=== PATIENT | female | born 1935 | race Caucasian/White ===

== ENCOUNTER → 2018-03-06 | Outpatient (CLI) | payer MEDICARE ==
--- NOTE | 2018-03-07 13:25 | MM ---
Reason for exam: screening (asymptomatic). Last mammogram was performed 1 year and 1 month ago. History: Patient is postmenopausal and has history of endometrial cancer at age 78. Family history of premenopausal breast cancer in sister at age 40. Benign excisional biopsy of the left breast, July 24, 2002. Physical Findings: A clinical breast exam by your physician is recommended on an annual basis and results should be correlated with mammographic findings. MG Screening Mammo w CAD Bilateral CC and MLO view(s) were taken. Prior study comparison: January 19, 2017, bilateral MG screening mammo w CAD. January 11, 2016, bilateral MG screening mammo w CAD. The breast tissue is extremely dense which could obscure a lesion on mammography. No significant changes when compared with prior studies. ASSESSMENT: Benign, BI-RAD 2 RECOMMENDATION: Routine screening mammogram of both breasts in 1 year.
== END | disposition home or self-care (01) ==
LOC: RADMAMWWP 14:29
PROVIDERS: ATTEND Obstetrics & Gynecology
DX: Z12.31 Encounter for screening mammogram for malignant neoplasm of breast (principal); Z80.3 Family history of malignant neoplasm of breast
CPT/HCPCS: 77067

== ENCOUNTER → 2019-03-28 | Outpatient (CLI) | payer MEDICARE ==
--- NOTE | 2019-03-28 11:33 | MM ---
Reason for exam: screening (asymptomatic). Last mammogram was performed 1 year and 1 month ago. History: Patient is postmenopausal and has history of endometrial cancer at age 78. Family history of premenopausal breast cancer in sister at age 40. Benign excisional biopsy of the left breast, July 24, 2002. Physical Findings: A clinical breast exam by your physician is recommended on an annual basis and results should be correlated with mammographic findings. MG Screening Mammo w CAD Bilateral CC and MLO view(s) were taken. Prior study comparison: March 06, 2018, bilateral MG screening mammo w CAD. January 19, 2017, bilateral MG screening mammo w CAD. The breast tissue is heterogeneously dense. This may lower the sensitivity of mammography. There are benign appearing round vascular calcifications bilaterally. There is chronic nodularity in the left breast. There is no discrete abnormality. ASSESSMENT: Benign, BI-RAD 2 RECOMMENDATION: Routine screening mammogram of both breasts in 1 year.
== END | disposition home or self-care (01) ==
LOC: RADMAMWWP 09:20
PROVIDERS: ATTEND Obstetrics & Gynecology
DX: Z12.31 Encounter for screening mammogram for malignant neoplasm of breast (principal); Z80.3 Family history of malignant neoplasm of breast
CPT/HCPCS: 77067

== ENCOUNTER → 2020-01-23 | Outpatient (CLI) | payer MEDICARE ==
--- NOTE | 2020-01-23 12:20 | FL ---
EXAMINATION TYPE: FL barium swallow DATE OF EXAM: 01/23/2020 COMPARISON: None HISTORY: Dysphasia lung field TECHNIQUE: Double air-contrast technique is utilized. Fluoroscopy and overhead radiographs were obtained. The esophagus dilates to normal caliber has normal contour to the gastroesophageal junction. Gastroes ophageal junction opens to normal caliber. Multiple tertiary contractions were evident during this ex amination compatible with presbyesophagus. There is incomplete stripping the esophageal bolus the hor izontal drinking position. IMPRESSIONS: 1. Presbyesophagus.
== END | disposition home or self-care (01) ==
LOC: RADUSWWP 10:39
PROVIDERS: ATTEND Otolaryngology
DX: K22.8 Other specified diseases of esophagus (principal)
CPT/HCPCS: 74220

== ENCOUNTER → 2020-05-27 | Outpatient (CLI) | payer MEDICARE ==
--- NOTE | 2020-05-28 14:54 | MM ---
Reason for exam: screening (asymptomatic). Last mammogram was performed 1 year and 2 months ago. History: Patient is postmenopausal and has history of endometrial cancer at age 78. Family history of premenopausal breast cancer in sister at age 40. Benign excisional biopsy of the left breast, July 24, 2002. Physical Findings: A clinical breast exam by your physician is recommended on an annual basis and results should be correlated with mammographic findings. MG Screening Mammo w CAD Bilateral CC and MLO view(s) were taken. Prior study comparison: March 28, 2019, bilateral MG screening mammo w CAD. March 06, 2018, bilateral MG screening mammo w CAD. The breast tissue is heterogeneously dense. This may lower the sensitivity of mammography. There are benign appearing round, vascular calcifications bilaterally. There is no discrete abnormality. ASSESSMENT: Benign, BI-RAD 2 RECOMMENDATION: Routine screening mammogram of both breasts in 1 year.
== END | disposition home or self-care (01) ==
LOC: RADMAMWWP 13:01
PROVIDERS: ATTEND Obstetrics & Gynecology
DX: Z12.31 Encounter for screening mammogram for malignant neoplasm of breast (principal); Z80.3 Family history of malignant neoplasm of breast
CPT/HCPCS: 77067

== ENCOUNTER → 2022-05-10 | Outpatient (CLI) | payer MEDICARE ==
--- NOTE | 2022-05-10 14:59 | BD ---
EXAMINATION TYPE: Axial Bone Density DATE OF EXAM: 05/10/2022 COMPARISON: NONE CLINICAL HISTORY: 86 year old Female. ICD-10 CODE: M81.0 AGE RELATED OSTEOPOROSIS W/O CURRENT Height: 60 Weight: 132.1 FRAX RISK QUESTIONS: Alcohol (3 or more units per day): no Family History (Parent hip fracture): no Glucocorticoids (More than 3mos): no (Ex: prednisone, prednisolone, methylprednisolone, dexamethasone, and hydrocortisone). History of Fracture in Adulthood: no Secondary Osteoporosis: 1. Type 1 Diabetes: no 2. Hyperthyroidism: no 3. Menopause before 45: no 4. Malnutrition: no 5. Chronic liver disease: no Rheumatoid Arthritis: no Current Tobacco Use: no RISK FACTORS HISTORY OF: Surgery to Spine/Hip(right/left)/Wrist (right/left): no Family History of Osteoporosis: no Active: yes Diet low in dairy products/other sources of calcium: no Postmenopausal woman: yes Lost more than 2 inches in height since high school: yes MEDICATIONS: Osteoporosis Medications: Evista How Long: long time Additional Medications: Additional History: EXAM MEASUREMENTS: Bone mineral densitometry was performed using the [employer] System. Bone mineral density as measured about the Lumbar spine is: ----- L1-L4(G/cm2): 1.224 T Score Values are as follows: ----- L1: 0.6 ----- L2: 1.2 ----- L3: 0.4 ----- L4: -0.5 ----- L1-L4: 0.4 Bone mineral density has: increased 8.4 % since study of: 01.02.2014 Bone mineral density about the R hip (g/cm2): 0.880 Bone mineral density about the L hip (g/cm2): 0.851 T Score values are as follows: -----R Neck: -1.1 -----L Neck: -1.3 -----R Total: -0.7 -----L Total: -0.7 Bone mineral density has: decreased -0.1% since study of: 01.02.2014 FRAX%s: The graph provided illustrates a 13.0% chance for a major osteoporotic fx and a 3.3% chance f or the hips probability for fx in 10 years time. IMPRESSION: Osteopenia (T Score between -2.5 and -1). There is slightly increased risk of fracture and the patient may be considered for treatment. Re-Screen 2-5 years. NOTE: T-SCORE=SD OF THE YOUNG ADULT MEAN.
== END | disposition home or self-care (01) ==
LOC: RADBDWWP 13:51
PROVIDERS: ATTEND Internal Medicine Geriatric Medicine
DX: M85.89 Other specified disorders of bone density and structure, multiple sites (principal); M81.0 Age-related osteoporosis without current pathological fracture; Z78.0 Asymptomatic menopausal state
CPT/HCPCS: 77080

== ENCOUNTER 2022-11-13 09:52 | Inpatient (IN) | payer MEDICARE ==
--- NOTE | 2022-11-13 10:44 | ED ---
Weakness HPI - General Chief complaint: Weakness Stated complaint: poss UTI,Fall Time Seen by Provider: 11/13/22 10:15 Source: patient, family, RN notes reviewed Mode of arrival: ambulatory Limitations: no limitations - History of Present Illness Initial comments: This is an 86-year-old female who presents to the emergency department for weakness. Patient states that she went to a walk-in clinic several days ago for urinary urgency and was diagnosed with UTI. She has since been on Macrobid, and has 2 days left. However, she has continued to feel very weak. Her son, who is at bedside, states that she is also been exhibiting strange behavior. Last night, the patient ended up on her floor, and is unsure how she got there. She ended up spending the night on the floor all night and urinated on herself, before her family came to check on her today and found her on the floor. Denies sustaining any injuries. Believes that she was too weak to get herself up. She has not had any fevers, nausea, or vomiting. Denies any history of UTIs prior to this. She does feel like she continues to have an increase in urinary frequency. Denies any back pain or abdominal pain. Denies any fevers, chills, sore throat, cough, dyspnea, chest pain, palpitations, abdominal pain, nausea, vomiting, diarrhea, back pain, or headaches. MD Complaint: generalized weakness - Related Data Home Medications Medication Instructions Recorded Confirmed Atenolol [Tenormin] 25 mg PO HS 11/19/13 11/13/22 Enalapril [Vasotec] 5 mg PO HS 11/19/13 11/13/22 Simvastatin [Zocor] 10 mg PO Q48H 11/13/22 11/13/22 Allergies Allergy/AdvReac Type Severity Reaction Status Date / Time cefuroxime axetil AdvReac Rash/Hives Verified 11/13/22 11:34 [From Ceftin] cephalexin monohydrate AdvReac Rash/Hives Verified 11/13/22 11:34 [From Keflex] Penicillins AdvReac Diarrhea Verified 11/13/22 11:34 zolpidem tartrate AdvReac Rash/Hives Verified 11/13/22 11:34 [From Ambien] Review of Systems ROS Statement: Those systems with pertinent positive or pertinent negative responses have been documented in the HPI. ROS Other: All systems not noted in ROS Statement are negative. Past Medical History Past Medical History: Hyperlipidemia, Hypertension Additional Past Medical History / Comment(s): heart murmer, arrythmia History of Any Multi-Drug Resistant Organisms: None Reported Past Surgical History: Breast Surgery, Cholecystectomy, Heart Catheterization Additional Past Surgical History / Comment(s): breast biopsy Past Anesthesia/Blood Transfusion Reactions: No Reported Reaction Past Psychological History: No Psychological Hx Reported Smoking Status: Never smoker Past Alcohol Use History: None Reported Past Drug Use History: None Reported - Past Family History Mother Family Medical History: Cancer Sister(s) Family Medical History: Cancer General Exam Limitations: no limitations General appearance: alert, in no apparent distress Head exam: Present: atraumatic, normocephalic, normal inspection Respiratory exam: Present: normal lung sounds bilaterally. Absent: respiratory distress, wheezes, rales, rhonchi, stridor Cardiovascular Exam: Present: normal rhythm, tachycardia, normal heart sounds. Absent: systolic murmur, diastolic murmur, rubs, gallop, clicks GI/Abdominal exam: Present: soft, normal bowel sounds. Absent: distended, ten derness, guarding, rebound, rigid Back exam: Absent: CVA tenderness (R), CVA tenderness (L) Neurological exam: Present: alert, oriented X3, CN II-XII intact Psychiatric exam: Present: normal affect, normal mood Skin exam: Present: warm, dry, intact, normal color. Absent: rash Course Vital Signs 11/13/22 11/13/22 11/13/22 10:08 10:34 14:30 Temperature 98.9 F Pulse Rate 118 H 104 H 100 Respiratory 18 20 18 Rate Blood Pressure 122/75 113/55 O2 Sat by Pulse 95 95 Oximetry Medical Decision Making - Medical Decision Making This is an 86-year-old female who presents to the emergency department for generalized weakness. Was pt. sent in by a medical professional or institution? @ -No Did you speak to anyone other than the patient for history? @ -Her son provided the majority of the information, aside from the patient's saying that she has no history of UTIs and has currently been experiencing urinary frequency and urgency. Did you review nursing and triage notes? @ -Yes, and I agree, it is accurate with regards to the patient's symptoms. Were old charts reviewed? @ -No Differential Diagnosis? @ -Differential Weakness: Hypoglycemia, shock, sepsis, hyponatremia, anemia, infection, ID, ETOH, adverse medicine reaction, overdose, stroke, this is not meant to be an all-inclusive list. EKG interpreted by me (3pts min.)? @ -EKG interpreted by me demonstrating the following: Sinus tachycardia. Ventricular rate 107 beats per minute, IL interval 151 ms, QRS duration 135 ms, QTC 448 ms. X-rays interpreted by me (1pt min.)? @ -Chest x-ray obtained. My interpretation identifies subsegmental changes at the left lung base. CT interpreted by me (1pt min.)? @ -Not obtained U/S interpreted by me (1pt. min.)? @ -Not obtained What testing was considered but not performed? (CT, X-rays, U/S, labs)? Why? @ -None What meds were considered but not given? Why? @ -None Did you discuss the management of the patient with other professionals? @ -No Did you reconcile home meds? @ -No Was smoking cessation discussed for >3mins.? @ -No Was critical care preformed (if so, how long)? @ -No Were there social determinants of health that impacted care today? How? (Homelessness, low income, unemployed, alcoholism, drug addiction, transportation, low edu. Level, literacy, decrease access to med. care, longterm, rehab)? @ -No Was there de-escalation of care discussed even if they declined? (Discuss DNR or withdrawal of care, Hospice)? @ -No What co-morbidities impacted this encounter? (DM, HTN, Smoking, COPD, CAD, Cancer, CVA, Hep., AIDS, mental health diagnosis, sleep apnea, morbid obesity)? @ -HLD, HTN Was patient admitted / discharged? @ -Admitted. Lab work obtained revealing leukocytosis and elevated CK suggestive of rhabdomyolysis with a value of 2115. Urinalysis has blood and no significant signs of infection. Chest x-ray reveals subsegmental changes at the left lung base suggestive of atelectasis or pneumonia. Patient has no difficu lty breathing or upper respiratory symptoms. However, she does have an elevated white count and remained tachycardic while in the emergency department. We thus started her on antibiotics for possible pneumonia. She was started on levofloxacin due to her allergy to cephalosporins and penicillins. She was given a 2 L bolus of IV fluids for the rhabdomyolysis and was started on maintenance IV fluids at 130 mL/hr. Undiagnosed new problem with uncertain prognosis? @ -None Drug Therapy requiring intensive monitoring for toxicity (Heparin, Nitro, Insulin, Cardizem)? @ -None Were any procedures done? @ -None Diagnosis/symptom? @ -Rhabdomyolysis, pneumonia, weakness Acute, or Chronic, or Acute on Chronic? @ -Acute Uncomplicated (without systemic symptoms) or Complicated (systemic symptoms)? @ -Complicated Side effects of treatment? @ -None Exacerbation, Progression, or Severe Exacerbation] @ -Not applicable Poses a threat to life or bodily function? @ -Yes This case was discussed in detail with the attending ED physician, Dr. Jarvis. Presentation, findings, and treatment plan discussed in detail as well. - Lab Data Result diagrams: 11/13/22 10:42 11/13/22 10:42 Lab Results 11/13/22 11/13/22 11/13/22 Range/Units 10:42 10:42 10:42 WBC 18.6 H (3.8-10.6) k/uL RBC 4.78 (3.80-5.40) m/uL Hgb 14.7 (11.4-16.0) gm/dL Hct 43.4 (34.0-46.0) % MCV 90.8 (80.0-100.0) fL MCH 30.8 (25.0-35.0) pg MCHC 33.9 (31.0-37.0) g/dL RDW 12.9 (11.5-15.5) % Plt Count 250 (150-450) k/uL MPV 9.2 Neutrophils % 88 % Lymphocytes % 3 % Monocytes % 5 % Eosinophils % 2 % Basophils % 0 % Neutrophils # 16.3 H (1.3-7.7) k/uL Lymphocytes # 0.6 L (1.0-4.8) k/uL Monocytes # 0.9 (0-1.0) k/uL Eosinophils # 0.3 (0-0.7) k/uL Basophils # 0.0 (0-0.2) k/uL PT 10.8 (9.0-12.0) sec INR 1.0 (<1.2) APTT 26.2 (22.0-30.0) sec Sodium (137-145) mmol/L Potassium (3.5-5.1) mmol/L Chloride (98-107) mmol/L Carbon Dioxide (22-30) mmol/L Anion Gap mmol/L BUN (7-17) mg/dL Creatinine (0.52-1.04) mg/dL Est GFR (CKD-EPI)AfAm (>60 ml/min/1.73 sqM) Est GFR (CKD-EPI)NonAf (>60 ml/min/1.73 sqM) Glucose (74-99) mg/dL Lactic Ac Sepsis Rflx Plasma Lactic Acid [place] (0.7-2.0) mmol/L Calcium (8.4-10.2) mg/dL Total Bilirubin (0.2-1.3) mg/dL AST (14-36) U/L ALT (4-34) U/L Alkaline Phosphatase (38-126) U/L Creatine Kinase (30-135) U/L Troponin I (0.000-0.034) ng/mL C-Reactive Protein (<1.0) mg/dL Total Protein (6.3-8.2) g/dL Albumin (3.5-5.0) g/dL Urine Color Yellow Urine Appearance Cloudy H (Clear) Urine pH 5.5 (5.0-8.0) Ur Specific [place] 1.021 (1.001-1.035) Urine Protein 1+ H (Negative) Urine Glucose (UA) Negative (Negative) Urine Ketones Negative (Negative) Urine Blood Moderate H (Negative) Urine Nitrite Negative (Negative) Urine Bilirubin Negative (Negative) Urine Urobilinogen <2.0 (<2.0) mg/dL Ur Leukocyte Esterase Trace H (Negative) Urine RBC 1 (0-5) /hpf Urine WBC 4 (0-5) /hpf Ur Squamous Epith Cells 8 H (0-4) /hpf Urine Bacteria Rare H (None) /hpf Hyaline Casts 3 H (0-2) /lpf Urine Mucus Many H (None) /hpf Influenza Type A (PCR) (Not Detectd) Influenza Type B (PCR) (Not Detectd) RSV (PCR) (Not Detectd) SARS-CoV-2 (PCR) (Not Detectd) 11/13/22 11/13/22 11/13/22 Range/Units 10:42 10:42 10:42 WBC (3.8-10.6) k/uL RBC (3.80-5.40) m/uL Hgb (11.4-16.0) gm/dL Hct (34.0-46.0) % MCV (80.0-100.0) fL MCH (25.0-35.0) pg MCHC (31.0-37.0) g/dL RDW (11.5-15.5) % Plt Count (150-450) k/uL MPV Neutrophils % % Lymphocytes % % Monocytes % % Eosinophils % % Basophils % % Neutrophils # (1.3-7.7) k/uL Lymphocytes # (1.0-4.8) k/uL Monocytes # (0-1.0) k/uL Eosinophils # (0-0.7) k/uL Basophils # (0-0.2) k/uL PT (9.0-12.0) sec INR (<1.2) APTT (22.0-30.0) sec Sodium 136 L (137-145) mmol/L Potassium 3.8 (3.5-5.1) mmol/L Chloride 102 (98-107) mmol/L Carbon Dioxide 22 (22-30) mmol/L Anion Gap 12 mmol/L BUN 12 (7-17) mg/dL Creatinine 0.65 (0.52-1.04) mg/dL Est GFR (CKD-EPI)AfAm >90 (>60 ml/min/1.73 sqM) Est GFR (CKD-EPI)NonAf 81 (>60 ml/min/1.73 sqM) Glucose 154 H (74-99) mg/dL Lactic Ac Sepsis Rflx Plasma Lactic Acid [place] 2.2 H* (0.7-2.0) mmol/L Calcium 8.7 (8.4-10.2) mg/dL Total Bilirubin 1.0 (0.2-1.3) mg/dL AST 64 H (14-36) U/L ALT 30 (4-34) U/L Alkaline Phosphatase 32 L (38-126) U/L Creatine Kinase 2115 H* (30-135) U/L Troponin I <0.012 (0.000-0.034) ng/mL C-Reactive Protein (<1.0) mg/dL Total Protein 7.1 (6.3-8.2) g/dL Albumin 4.0 (3.5-5.0) g/dL Urine Color Urine Appearance (Clear) Urine pH (5.0-8.0) Ur Specific [place] (1.001-1.035) Urine Protein (Negative) Urine Glucose (UA) (Negative) Urine Ketones (Negative) Urine Blood (Negative) Urine Nitrite (Negative) Urine Bilirubin (Negative) Urine Urobilinogen (<2.0) mg/dL Ur Leukocyte Esterase (Negative) Urine RBC (0-5) /hpf Urine WBC (0-5) /hpf Ur Squamous Epith Cells (0-4) /hpf Urine Bacteria (None) /hpf Hyaline Casts (0-2) /lpf Urine Mucus (None) /hpf Influenza Type A (PCR) (Not Detectd) Influenza Type B (PCR) (Not Detectd) RSV (PCR) (Not Detectd) SARS-CoV-2 (PCR) (Not Detectd) 11/13/22 11/13/22 11/13/22 Range/Units 10:42 11:15 11:41 WBC (3.8-10.6) k/uL RBC (3.80-5.40) m/uL Hgb (11.4-16.0) gm/dL Hct (34.0-46.0) % MCV (80.0-100.0) fL MCH (25.0-35.0) pg MCHC (31.0-37.0) g/dL RDW (11.5-15.5) % Plt Count (150-450) k/uL MPV Neutrophils % % Lymphocytes % % Monocytes % % Eosinophils % % Basophils % % Neutrophils # (1.3-7.7) k/uL Lymphocytes # (1.0-4.8) k/uL Monocytes # (0-1.0) k/uL Eosinophils # (0-0.7) k/uL Basophils # (0-0.2) k/uL PT (9.0-12.0) sec INR (<1.2) APTT (22.0-30.0) sec Sodium (137-145) mmol/L Potassium (3.5-5.1) mmol/L Chloride (98-107) mmol/L Carbon Dioxide (22-30) mmol/L Anion Gap mmol/L BUN (7-17) mg/dL Creatinine (0.52-1.04) mg/dL Est GFR (CKD-EPI)AfAm (>60 ml/min/1.73 sqM) Est GFR (CKD-EPI)NonAf (>60 ml/min/1.73 sqM) Glucose (74-99) mg/dL Lactic Ac Sepsis Rflx Y Plasma Lactic Acid [place] (0.7-2.0) mmol/L Calcium (8.4-10.2) mg/dL Total Bilirubin (0.2-1.3) mg/dL AST (14-36) U/L ALT (4-34) U/L Alkaline Phosphatase (38-126) U/L Creatine Kinase (30-135) U/L Troponin I (0.000-0.034) ng/mL C-Reactive Protein 6.8 H (<1.0) mg/dL Total Protein (6.3-8.2) g/dL Albumin (3.5-5.0) g/dL Urine Color Urine Appearance (Clear) Urine pH (5.0-8.0) Ur Specific [place] (1.001-1.035) Urine Protein (Negative) Urine Glucose (UA) (Negative) Urine Ketones (Negative) Urine Blood (Negative) Urine Nitrite (Negative) Urine Bilirubin (Negative) Urine Urobilinogen (<2.0) mg/dL Ur Leukocyte Esterase (Negative) Urine RBC (0-5) /hpf Urine WBC (0-5) /hpf Ur Squamous Epith Cells (0-4) /hpf Urine Bacteria (None) /hpf Hyaline Casts (0-2) /lpf Urine Mucus (None) /hpf Influenza Type A (PCR) Not Detected (Not Detectd) Influenza Type B (PCR) Not Detected (Not Detectd) RSV (PCR) Not Detected (Not Detectd) SARS-CoV-2 (PCR) Not Detected (Not Detectd) - Radiology Data Radiology results: report reviewed, image reviewed Disposition Clinical Impression: Rhabdomyolysis, Weakness, Pneumonia Disposition: ADMITTED IP TO THIS HOSP
[2022-11-13 10:59] LABS: Basophils % (A) 0 %; Eosinophils # (A) 0.3 k/uL (0-0.7); Eosinophils % (A) 2 %; HCT 43.4 % (34.0-46.0); HGB 14.7 gm/dL (11.4-16.0); Lymphocytes # (A) 0.6 k/uL (1.0-4.8); Lymphocytes % (A) 3 %; MCH 30.8 pg (25.0-35.0); MCHC 33.9 g/dL (31.0-37.0); MCV 90.8 fL (80.0-100.0); Mean Platelet Volume 9.2; Monocytes # (A) 0.9 k/uL (0-1.0); Monocytes % (A) 5 %; Neutrophils # (A) 16.3 k/uL (1.3-7.7); Neutrophils % (A) 88 %; Platelet Count 250 k/uL (150-450); RBC 4.78 m/uL (3.80-5.40); RDW 12.9 % (11.5-15.5); WBC 18.6 k/uL (3.8-10.6)
[2022-11-13 11:08] LABS: Partial Thromboplastin Time 26.2 sec (22.0-30.0); Prothrombin Time 10.8 sec (9.0-12.0)
[2022-11-13 11:13] LABS: Appearance,Urine Cloudy (Clear); Bacteria,Urine Rare /hpf; Bilirubin,Urine Negative (Negative); Blood,Urine Moderate (Negative); Color,Urine Yellow; Glucose,Urine (UA) Negative (Negative); Hyaline Casts,Urine 3 /lpf (0-2); Ketones,Urine Negative (Negative); Leukocyte Esterase,Urine Trace (Negative); Mucus,Urine Many /hpf; Nitrite,Urine Negative (Negative); PH, Urine 5.5 (5.0-8.0); Protein,Urine 1+ (Negative); RBC,Urine 1 /hpf (0-5); Specific Gravity,Urine 1.021 (1.001-1.035); Squamous Epithelial Cell,Urine 8 /hpf (0-4); Urobilinogen,Urine <2.0 mg/dL (<2.0); WBC,Urine 4 /hpf (0-5)
[2022-11-13 11:14] LABS: ALT 30 U/L (4-34); African American GFR (CKD) >90 (>60 ml/min/1.73 sqM); Anion Gap 12 mmol/L; Blood Urea Nitrogen 12 mg/dL (7-17); Calcium 8.7 mg/dL (8.4-10.2); Carbon Dioxide 22 mmol/L (22-30); Chloride 102 mmol/L (98-107); Glucose 154 mg/dL (74-99); Non-African American GFR(CKD) 81 (>60 ml/min/1.73 sqM); Sodium 136 mmol/L (137-145); Total Protein 7.1 g/dL (6.3-8.2)
[2022-11-13 11:22] LABS: AST 64 U/L (14-36); Alkaline Phosphatase 32 U/L (38-126); Creatine Kinase 2115 U/L (30-135); Potassium 3.8 mmol/L (3.5-5.1)
[2022-11-13] MEDS ORDERED: SODIUM CHLORIDE 0.9% 1,000 ML IV STA ×2 (11:23→11:54)
--- NOTE | 2022-11-13 11:47 | XR ---
EXAMINATION TYPE: XR chest 2V DATE OF EXAM: 11/13/2022 COMPARISON: None TECHNIQUE: PA and lateral views submitted. HISTORY: Weakness FINDINGS: The lungs are clear and there is no pneumothorax, pleural effusion, or focal pneumonia. Heart size normal and no overt failure. Osseous structures demonstrate hypertrophic and degenerative changes of the spine. Diffuse hyperinflation. Subsegmental changes left lung base. Arthropathy of the AC joint a s osteopenia. Atherosclerotic change aorta. IMPRESSION: 1. COPD. Subsegmental changes at the left lung base favor atelectasis or pneumonia. Correlate clinica lly.
[2022-11-13] MEDS ORDERED: PNEUMONIA PROTOCOL UTILIZED 1 EACH MISC PO PRN (11:54)
[2022-11-13] MEDS ORDERED: LEVOFLOXACIN 750MG-D5W PMX 750 MG in DEXTROSE/WATER 1 150ML.BAG IVPB STA (11:54)
[2022-11-13] MEDS ORDERED: NALOXONE 0.4 MG/ML 1 ML VIAL IV PRN (12:37)
[2022-11-13] MEDS ORDERED: ONDANSETRON 4 MG/2 ML VIAL IVP PRN (12:37)
[2022-11-13] MEDS ORDERED: HYDROcodone/APAP 5-325MG 1 EACH TAB PO PRN (12:37)
[2022-11-13] MEDS ORDERED: ACETAMINOPHEN TAB 325 MG TAB PO PRN (12:37)
[2022-11-13] MEDS: SODIUM CHLORIDE 0.9% 1,000 ML IV SCH ×2 (14:25→22:41)
--- NOTE | 2022-11-14 02:03 | P.HPIM ---
History of Present Illness H&P Date: 11/13/22 Chief Complaint: Weakness Patient is a 86-year-old female with a known history of hypertension, hyperlipidemia, history of heart murmur and is on follow-up with Dr. Taylor as an outpatient was brought to the hospital as she was found on on the floor. Last night she had up on the floor and unsure how she got there. She has been on the floor all night and urinated on herself. Family came in to check on her today and found her on the floor. Otherwise patient denies any complaints of pain or any injuries. Patient states that she is felt too weak to get herself up. Patient states that she went to walk-in clinic several days ago for urinary urgency and was diagnosed with urinary tract infection. Patient was given Macrobid course. She has been taking the medications and is left for 2 days to complete. As per family she slept all day yesterday and felt very weak. Laboratory data showed WBC 18.6 hemoglobin 14.7 platelets 250 Sodium 136 potassium 3.8 chloride 102 bicarb is 22 BUN 12 and creatinine 0.65 and blood sugar is 154. Lactic acid 2.2 CPK level is 2115 and troponin x1 negative CRP 6.8 and procalcitonin level is 0.24. Urinalysis showed cloudy with moderate blood and 1 RBCs and WBCs 4. Chest x-ray showed COPD. Subsegmental changes in the left lung base favor atelectasis or pneumonia. Correlate clinically. EKG showed sinus tachycardia. Left lower lobe pneumonia Sepsis secondary to above Recently treated urinary tract infection Acute rhabdomyolysis CPK 2115 on admission Generalized weakness and was on the floor overnight until family found her this morning. Lactic acidosis Hypertension Hyperlipidemia DVT prophylaxis with heparin subcu Plan: Patient will be continued on IV hydration with normal saline. Currently on antibiotics levofloxacin. Patient is allergic to cefuroxime and penicillins. Follow-up blood cultures and sputum cultures and follow-up closely. Repeat chest x-ray tomorrow. Continue with home medications. Discussed with the patient and her son at bedside in detail. Prognosis is guarded. Past Medical History Past Medical History: Hyperlipidemia, Hypertension Additional Past Medical History / Comment(s): heart murmer, arrythmia History of Any Multi-Drug Resistant Organisms: None Reported Past Surgical History: Breast Surgery, Cholecystectomy, Heart Catheterization Additional Past Surgical History / Comment(s): breast biopsy Past Anesthesia/Blood Transfusion Reactions: No Reported Reaction Past Psychological History: No Psychological Hx Reported Smoking Status: Never smoker Past Alcohol Use History: None Reported Past Drug Use History: None Reported - Past Family History Mother Family Medical History: Cancer Sister(s) Family Medical History: Cancer Medications and Allergies Home Medications Medication Instructions Recorded Confirmed Type Atenolol [Tenormin] 25 mg PO HS 11/19/13 11/13/22 History Enalapril [Vasotec] 5 mg PO HS 11/19/13 11/13/22 History Simvastatin [Zocor] 10 mg PO Q48H 11/13/22 11/13/22 History Allergies Allergy/AdvReac Type Severity Reaction Status Date / Time cefuroxime axetil AdvReac Rash/Hives Verified 11/13/22 11:34 [From Ceftin] cephalexin monohydrate AdvReac Rash/Hives Verified 11/13/22 11:34 [From Keflex] Penicillins AdvReac Diarrhea Verified 11/13/22 11:34 zolpidem tartrate AdvReac Rash/Hives Verified 11/13/22 11:34 [From Ambien] Physical Exam Vitals: Vital Signs Temp Pulse Resp BP Pulse Ox 11/13/22 14:30 100 18 113/55 95 11/13/22 10:34 104 H 20 11/13/22 10:08 98.9 F 118 H 18 122/75 95 Intake and Output 11/13/22 11/13/22 11/13/22 06:59 14:59 22:59 Other: Voiding Method Toilet Weight 58.967 kg Results CBC & Chem 7: 11/13/22 10:42 11/13/22 10:42 Labs: Abnormal Lab Results - Last 24 Hours (Table) 11/13/22 11/13/22 11/13/22 Range/Units 10:42 10:42 10:42 WBC 18.6 H (3.8-10.6) k/uL Neutrophils # 16.3 H (1.3-7.7) k/uL Lymphocytes # 0.6 L (1.0-4.8) k/uL Sodium 136 L (137-145) mmol/L Glucose 154 H (74-99) mg/dL Plasma Lactic Acid [place] (0.7-2.0) mmol/L AST 64 H (14-36) U/L Alkaline Phosphatase 32 L (38-126) U/L Creatine Kinase 2115 H* (30-135) U/L C-Reactive Protein (<1.0) mg/dL Urine Appearance Cloudy H (Clear) Urine Protein 1+ H (Negative) Urine Blood Moderate H (Negative) Ur Leukocyte Esterase Trace H (Negative) Ur Squamous Epith Cells 8 H (0-4) /hpf Urine Bacteria Rare H (None) /hpf Hyaline Casts 3 H (0-2) /lpf Urine Mucus Many H (None) /hpf 11/13/22 11/13/22 Range/Units 10:42 10:42 WBC (3.8-10.6) k/uL Neutrophils # (1.3-7.7) k/uL Lymphocytes # (1.0-4.8) k/uL Sodium (137-145) mmol/L Glucose (74-99) mg/dL Plasma Lactic Acid [place] 2.2 H* (0.7-2.0) mmol/L AST (14-36) U/L Alkaline Phosphatase (38-126) U/L Creatine Kinase (30-135) U/L C-Reactive Protein 6.8 H (<1.0) mg/dL Urine Appearance (Clear) Urine Protein (Negative) Urine Blood (Negative) Ur Leukocyte Esterase (Negative) Ur Squamous Epith Cells (0-4) /hpf Urine Bacteria (None) /hpf Hyaline Casts (0-2) /lpf Urine Mucus (None) /hpf Thrombosis Risk Factor Assmnt - DVT/VTE Prophylaxis DVT/VTE Prophylaxis: Pharmacologic Prophylaxis ordered
[2022-11-14] MEDS: SODIUM CHLORIDE 0.9% 1,000 ML IV SCH ×3 (05:31→17:53)
[2022-11-14] MEDS: HEPARIN SODIUM,PORCINE/PF 5,000 UNIT/0.5 ML SYRINGE SQ SCH ×2 (08:41→20:19)
[2022-11-14] MEDS: LEVOFLOXACIN 750 MG TAB PO SCH (08:41)
[2022-11-14 11:09] LABS: HCT 37.5 % (37.2-46.3); HGB 12.5 d/dL (12.0-15.0); MCH 30.9 pg (27.0-32.0); MCHC 33.3 d/dL (32.0-37.0); MCV 92.8 FL (80.0-97.0); Mean Platelet Volume 11.4 FL (9.5-12.2); NRBC Per 100 WBC 0 X 10*3/uL (0.00-0.01); Platelet Count 213 X 10*3/uL (140-440); RBC 4.04 X 10*6/uL (4.10-5.20); RDW 13.5 % (11.5-14.5); WBC 13.74 X 10*3/uL (4.50-10.00)
[2022-11-14 11:38] LABS: BUN/Creat Ratio 14.33 Ratio (12.00-20.00); Blood Urea Nitrogen 8.6 mg/dL (9.0-27.0); Calcium 7.9 mg/dL (8.7-10.3); Carbon Dioxide 19.8 mmol/L (21.6-31.8); Chloride 109 mmol/L (96-109); Glucose 105 mg/dL (70-110); Potassium 3.5 mmol/L (3.5-5.5); Sodium 140 mmol/L (135-145)
[2022-11-14 11:46] LABS: Creatine Kinase 1264 U/L (26-186)
[2022-11-14 11:54] LABS: Basophils # (M) 0 X 10*3/uL (0.00-0.10)
[2022-11-14 11:59] LABS: Eosinophils # (M) 0.55 X 10*3/uL (0.04-0.35); Lymphocytes # (M) 1.79 X 10*3/uL (0.90-5.00); Monocytes # (M) 0.96 X 10*3/uL (0.20-1.00); Neutrophils # (M) 10.44 X 10*3/uL (1.80-7.70); Neutrophils % (M) 76 %; RBC Morphology Normal (Normal)
--- NOTE | 2022-11-14 11:59 | XR ---
EXAMINATION TYPE: XR chest 2V DATE OF EXAM: 11/14/2022 COMPARISON: 11/13/2022 TECHNIQUE: PA and lateral views submitted. HISTORY: Cough FINDINGS: The lungs are clear and there is no pneumothorax, pleural effusion, or focal pneumonia. Heart size no rmal and no overt failure. Osseous structures demonstrate hypertrophic and degenerative changes of th e spine. Diffuse hyperinflation. Subsegmental changes left lung base. Arthropathy of the AC joint as osteopenia. Atherosclerotic change aorta. IMPRESSION: 1. Stable left lower lobe infiltrate and small effusion. 2. COPD.
[2022-11-14] MEDS ORDERED: ALBUTEROL NEBULIZED 2.5 MG/3 ML INHALATION PRN (16:35)
--- NOTE | 2022-11-14 17:09 | CDI ---
Documentation Clarification Form Date: 11/14/2022 04:57:45 PM From: Komal Whiting RN, CCDS Admit Date: 11/13/2022 12:41:00 PM Patient Name: Aria Tejeda Visit Number: [id number] Discharge Date: ATTENTION: The Clinical Documentation Specialists (CDI) and [facility] Coding Staff appreciate your assistance in clarifying documentation. Please respond to the clarification below the line at the bottom and electronically sign. The CDI & [facility] Coding staff will review the response and follow-up if needed. Please note: Queries are made part of the Legal Health Record. If you have any questions, please contact the author of this message via ITS. Dr. Comfort Israel Acute Rhabdomyolysis is documented in the H/P. Additional clarification regarding the type of rhabdomyolysis is requested. History/Risk Factors: Hyperlipidemia, HTN Clinical Indicators: 86-year-old female was found on the floor by family and had been there overnight. Creatine Kinase: 2115, 1264 11/13 Labs: WBC 18.6 Lactic acid 2.2 Treatment: .9NS 1,000 MLS IV Bolus 11/13, then @ 75 MLS HR 11/14 Monitor Creatine Kinase per orders Please clarify the type of rhabdomyolysis, if known: [ ] Traumatic rhabdomyolysis due to prolonged immobility, on the floor overnight. [ ] Other, please specify [ ] Unable to Determine (Template Last Revised: June 2020) Acute rhabdomyolysis CPK 2115 on admission, traumatic rhabdomyolysis due to prolonged immobility from falling and laying on the floor overnight Dictated By: Nichole Luna Signed By: <Electronically signed by Nichole ACEVEDO> 11/15/22 0611 [email or web address]
[2022-11-14] MEDS ORDERED: METOPROLOL SUCCINATE (ER) 25 MG TAB.ER.24H PO STA (20:47)
[2022-11-15] MEDS ORDERED: atenoloL 25 MG TAB PO SCH (06:06)
--- NOTE | 2022-11-15 06:11 | P.PN ---
Subjective Progress Note Date: 11/14/22 Patient is a 86-year-old female with a known history of hypertension, hyperlipidemia, history of heart murmur and is on follow-up with Dr. Taylor as an outpatient was brought to the hospital as she was found on on the floor. Last night she had up on the floor and unsure how she got there. She has been on the floor all night and urinated on herself. Family came in to check on her today and found her on the floor. Otherwise patient denies any complaints of pain or any injuries. Patient states that she is felt too weak to get herself up. Patient states that she went to walk-in clinic several days ago for urinary urgency and was diagnosed with urinary tract infection. Patient was given Macrobid course. She has been taking the medications and is left for 2 days to complete. As per family she slept all day yesterday and felt very weak. Laboratory data showed WBC 18.6 hemoglobin 14.7 platelets 250 Sodium 136 potassium 3.8 chloride 102 bicarb is 22 BUN 12 and creatinine 0.65 and blood sugar is 154. Lactic acid 2.2 CPK level is 2115 and troponin x1 negative CRP 6.8 and procalcitonin level is 0.24. Urinalysis showed cloudy with moderate blood and 1 RBCs and WBCs 4. Chest x-ray showed COPD. Subsegmental changes in the left lung base favor atelectasis or pneumonia. Correlate clinically. EKG showed sinus tachycardia. 11/14/2022 Patient is seen and evaluated in follow-up this morning currently undergoing repeat chest x-ray which is currently pending. Patient maintained on antibio tics in the form of Levaquin and will continue. Patient is currently afebrile with no reports of chest pain or shortness of breath. Patient denies any burning or frequency with urination. IV fluids continued and we'll decrease the rate slightly and follow-up with repeat labs. CK remains elevated. Patient with weakness will have physical therapy evaluate the patient. Patient denies nausea or vomiting and tolerating diet. Review of systems: Constitutional: No reports of fatigue, fever, or chills Cardiovascular: No reports of chest pain or palpitations Respiratory: No reports of shortness of breath or cough GI: No reports of nausea, vomiting, or diarrhea : No reports of dysuria or retention Neurovascular: reports of feeling generalized weakness All medications have been reviewed Gen: This is a 86-year-old female who is awake, alert and oriented 3, well- developed, well-nourished HEENT: Head is atraumatic, normocephalic. Pupils equal, round. Sclerae is anicteric. NECK: Supple. No JVD. No lymphadenopathy. No thyromegaly. LUNGS: Clear to auscultation. No wheezes or rhonchi. No intercostal retractions. HEART: Regular rate and rhythm. No murmur. ABDOMEN: Soft. Bowel sounds are present. No masses. No tenderness. EXTREMITIES: No pedal edema. No calf tenderness. NEUROLOGICAL: Patient is awake, alert and oriented x3. Cranial nerves 2 through 12 are grossly intact. Assessment: Left lower lobe pneumonia Sepsis secondary to above Recently treated urinary tract infection Acute rhabdomyolysis CPK 2115 on admission, traumatic rhabdomyolysis due to prolonged immobility from falling and laying on the floor overnight Generalized weakness and was on the floor overnight until family found her this morning. Lactic acidosis Hypertension Hyperlipidemia DVT prophylaxis with heparin subcu GI prophylaxis Full code Plan: Patient will be continued on IV hydration with normal saline. Will cut down the dose slightly and repeat CK in the a.m. Currently on antibiotics levofloxacin. Patient is allergic to cefuroxime and penicillins. Follow-up chest x-ray shows stable with COPD and will add as needed breathing treatments. Patient denies worsening shortness of breath Home medications reviewed and resumed. Patient with sinus tachycardia heart rate in the 1 teens will resume home atenolol Patient reports to feeling well and asking if she can go home. Will monitor overnight with follow-up labs and discuss possible discharge in the next 24 hours. Patient with generalized weakness will have PT/OT therapy evaluate the patient The impression and plan of care has been dictated by Nichole Luna, Nurse Practitioner as directed. Dr. Lindy MD I have performed a history and examination and MDM of this patient, discussed the same with the dictator, and agree with the dictator's assessment and plan as written ,documented as a scribe. Based on total visit time, I have performed more than 50% of the visit. Objective - Vital Signs Vital signs: Vital Signs Temp 97.5 F L 11/14/22 12:07 Pulse 111 H 11/14/22 12:07 Resp 16 11/14/22 12:07 BP 152/80 11/14/22 12:07 Pulse Ox 95 11/14/22 12:07 FiO2 Intake & Output 11/13/22 11/14/22 11/14/22 18:59 06:59 18:59 Intake Total 1300 Balance 1300 Weight 58.967 kg 58.967 kg Intake: Intake, IV Titration 1300 Amount Sodium Chloride 0.9% 1, 1300 000 ml @ 130 mls/hr IV . Q7H42M [facility] Rx#:[id number] Other: Voiding Method Toilet Toilet Toilet # Voids 1 2 # Bowel Movements 1 - Labs CBC & Chem 7: 11/14/22 05:33 11/14/22 05:33 Labs: Abnormal Lab Results - Last 24 Hours (Table) 11/13/22 11/14/22 11/14/22 Range/Units 10:42 05:33 05:33 WBC 13.74 H (4.50-10.00) X 10*3/uL RBC 4.04 L (4.10-5.20) X 10*6/uL Eosinophils # (Manual) 0.55 H (0.04-0.35) X 10*3/uL Carbon Dioxide 19.8 L (21.6-31.8) mmol/L BUN 8.6 L (9.0-27.0) mg/dL Calcium 7.9 L (8.7-10.3) mg/dL Creatine Kinase 1264 H* (26-186) U/L Procalcitonin 0.24 H (0.02-0.09) ng/mL
[2022-11-15] MEDS: SODIUM CHLORIDE 0.9% 1,000 ML IV SCH ×2 (06:21→20:47)
[2022-11-15] MEDS: LEVOFLOXACIN 750 MG TAB PO SCH (08:27)
[2022-11-15] MEDS: HEPARIN SODIUM,PORCINE/PF 5,000 UNIT/0.5 ML SYRINGE SQ SCH (08:27)
[2022-11-15 08:47] LABS: Basophils # (A) 0.04 X 10*3/uL (0.00-0.10); Basophils % (A) 0.4 %; Eosinophils # (A) 0.29 X 10*3/uL (0.04-0.35); Eosinophils % (A) 2.8 %; HCT 39.2 % (37.2-46.3); Lymphocytes # (A) 2.32 X 10*3/uL (0.90-5.00); Lymphocytes % (A) 22.2 %; MCH 30.6 pg (27.0-32.0); MCHC 33.2 d/dL (32.0-37.0); MCV 92.2 FL (80.0-97.0); Mean Platelet Volume 11.6 FL (9.5-12.2); Monocytes # (A) 1.24 X 10*3/uL (0.20-1.00); Monocytes % (A) 11.9 %; NRBC Per 100 WBC 0 X 10*3/uL (0.00-0.01); Neutrophils % (A) 62.1 %; Platelet Count 231 X 10*3/uL (140-440); RBC 4.25 X 10*6/uL (4.10-5.20); RDW 13.5 % (11.5-14.5); WBC 10.45 X 10*3/uL (4.50-10.00)
[2022-11-15] MEDS ORDERED: ATORVASTATIN 10 MG TAB PO SCH (09:00)
[2022-11-15 09:43] LABS: BUN/Creat Ratio 15.17 Ratio (12.00-20.00); Blood Urea Nitrogen 9.1 mg/dL (9.0-27.0); Calcium 8.2 mg/dL (8.7-10.3); Carbon Dioxide 20.9 mmol/L (21.6-31.8); Chloride 108 mmol/L (96-109); Glucose 109 mg/dL (70-110); Magnesium 1.9 mg/dL (1.5-2.4); Potassium 3.7 mmol/L (3.5-5.5); Sodium 143 mmol/L (135-145)
[2022-11-15 09:44] LABS: Creatine Kinase 1040 U/L (26-186)
[2022-11-15] MEDS ORDERED: METOPROLOL SUCCINATE (ER) 25 MG TAB.ER.24H PO SCH (11:15)
[2022-11-15] MEDS: METOPROLOL TARTRATE 25 MG TAB PO SCH ×2 (11:39→20:43)
[2022-11-15] MEDS: APIXABAN 2.5 MG TABLET PO SCH ×2 (11:39→20:42)
--- NOTE | 2022-11-15 14:18 | P.CRDCN ---
History of Present Illness History of present illness: HISTORY OF PRESENT ILLNESS: This is a 86-year-old female with a past medical history significant for hypertension and hyperlipidemia. Patient follows in the office with Dr. Taylor. We have been asked to see the patient in consultation for ventricular tachycardia. Patient examined at the bedside. Patient presented to the hospital after she was found on her floor at home. The patient states that she woke up and was on the floor. She does not remember falling. She states she was unable to get up and laid on the floor for several hours. The patient was found to have rhabdomyolysis and also left lower lobe pneumonia. The patient currently denies chest pain or pressure. She denies shortness of breath. Telemetry reviewed and appears to show episodes of atrial fibrillation with aberrancy rather than ventricular tachycardia. Patient denies a history of atrial fibrillation. She denies having any palpitations. She denies any alcohol use. She denies any excessive caffeine use and states she does not drink coffee. * EKG reveals sinus tachycardia. Telemetry reviewed with episodes of atrial fibrillation with aberrancy * Chest xray COPD. Subsegmental changes at the left lung base favored atelectasis or pneumonia. * Laboratory data: W BC 10.45. Hemoglobin 13.0. Platelet count 231. Sodium 143. Potassium 3.7. BUN 9.1. Creatinine 0.6. Creatinine kinase 1040. * Current home cardiac medications include simvastatin 10 mg every 48 hours, enalapril 5 mg at night, atenolol 25 mg at night REVIEW OF SYSTEMS: At the time of my exam: CONSTITUTIONAL: Denies fever or chills. HEENT: Denies blurred vision, vision changes, or eye pain. Denies hemoptysis CARDIOVASCULAR: Denies chest pain. Denies orthopnea. Denies PND. Denies palpitations RESPIRATORY: Denies shortness of breath. GASTROINTESTINAL: Denies abdominal pain. Denies nausea or vomiting. HEMATOLOGIC: Denies bleeding disorders. GENITOURINARY: Denies any blood in urine. SKIN: Denies pruitis. Denies rash. PHYSICAL EXAM: VITAL SIGNS: Reviewed. GENERAL: Well-developed in no acute distress. HEENT: Head is normocephalic. Pupils are equal, round. Sclerae anicteric. Mucous membranes of the mouth are moist. Neck supple. No JVD or thyromegaly LUNGS: Respirations even and unlabored. Lungs essentially clear to auscultation bilaterally. HEART: Regular rate and rhythm. S1 and S2 heard. Positive systolic murmur ABDOMEN: Soft. Nondistended. Nontender. EXTREMITIES: Normal range of motion. No clubbing or cyanosis. Peripheral pulses intact. No lower extremity edema NEUROLOGIC: Awake and alert. Oriented x 3. 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 Case management checked co-pay which is $45 a month Check TSH Continue telemetry monitoring Patient to receive 14 days on monitor at the time of discharge Likely discharge home tomorrow from a cardiac standpoint Further recommendations pending patient's course Nurse practitioner note has been reviewed by physician. Signing provider agrees with the documented findings, assessment, and plan of care. Dr. Hylton's Addendum I agree with the above plan. Consult was originally for ventricular tachycardia. We had a detailed review of her telemetry which demonstrated irregularly irregular tachycardic rhythm with mild prolongation of her intraventricular conduction delay suggestive of atrial fibrillation with aberrancy likely due to borderline underlying AV veronica disease . We had a detailed discussion about atrial fibrillation and risk of stroke. Patient's [id number] score is 4, age, gender and hypertension. Patient is agreeable to start anticoagulation understanding the risks and the benefits. Patient reports having stable gait and denies any recent falls. Patient presented to the hospital with an unwitnessed episode of fall. Patient reported that she was laying on the collagen next thing she remembered was being on floor. She however denies having any syncopal episodes since she was standing or walking. She denies any unstable gait. Monitor telemetry, obtain TSH levels. Most likely related to go home tomorrow. On discharge prescribe patient 14 day event monitor. Patient should follow-up outpatient in cardiology clinic. Her echo did not show any significant valvular disease. Her LV systolic function is intact and she does not have any regional wall motion abnormality. i have personally seen and examined the patient. I have personally performed all the components of medical care documented above including formulating the assessment and plan. I have personally reviewed the relevant labs, imaging and other diagnostics. I have discussed this in detail with my ADDICTIONS THERAPIST who has helped me with this documentation. I have carefully reviewed this document before finalizing. Total time spent reviewing medical chart, examining patient, counselling patient and documentation [45] mins Thank you for letting cardiology team participating in this patient's care. Dr. Eddie Hylton MD Cardiovascular Disease Past Medical History Past Medical History: Hyperlipidemia, Hypertension Additional Past Medical History / Comment(s): heart murmer, arrythmia History of Any Multi-Drug Resistant Organisms: None Reported Past Surgical History: Breast Surgery, Cholecystectomy, Heart Catheterization Additional Past Surgical History / Comment(s): breast biopsy Past Anesthesia/Blood Transfusion Reactions: No Reported Reaction Past Psychological History: No Psychological Hx Reported Smoking Status: Never smoker Past Alcohol Use History: None Reported Past Drug Use History: None Reported - Past Family History Mother Family Medical History: Cancer Sister(s) Family Medical History: Cancer Medications and Allergies Home Medications Medication Instructions Recorded Confirmed Type Atenolol [Tenormin] 25 mg PO HS 11/19/13 11/13/22 History Enalapril [Vasotec] 5 mg PO HS 11/19/13 11/13/22 History Simvastatin [Zocor] 10 mg PO Q48H 11/13/22 11/13/22 History Apixaban [Eliquis] 2.5 mg PO BID #60 tab 11/15/22 Rx Allergies Allergy/AdvReac Type Severity Reaction Status Date / Time cefuroxime axetil AdvReac Rash/Hives Verified 11/13/22 11:34 [From Ceftin] cephalexin monohydrate AdvReac Rash/Hives Verified 11/13/22 11:34 [From Keflex] Penicillins AdvReac Diarrhea Verified 11/13/22 11:34 zolpidem tartrate AdvReac Rash/Hives Verified 11/13/22 11:34 [From Ambien] Physical Exam Vitals: Vital Signs Temp Pulse Resp BP Pulse Ox 11/15/22 08:18 95 11/15/22 07:46 98.2 F 83 18 146/75 96 11/15/22 02:00 98.3 F 104 H 16 153/82 95 11/14/22 20:00 98.4 F 111 H 16 129/76 96 Intake and Output 11/14/22 11/15/22 11/15/22 22:59 06:59 14:59 Intake Total 590 Balance 590 Intake: Oral 590 Other: Voiding Method Toilet Toilet # Voids 1 3 Results 11/15/22 06:00 11/15/22 06:00 CBC 11/15/22 Range/Units 06:00 WBC 10.45 H (4.50-10.00) X 10*3/uL RBC 4.25 (4.10-5.20) X 10*6/uL Hgb 13.0 (12.0-15.0) d/dL Hct 39.2 (37.2-46.3) % Plt Count 231 (140-440) X 10*3/uL Comprehensive Metabolic Panel 11/15/22 Range/Units 06:00 Sodium 143 (135-145) mmol/L Potassium 3.7 (3.5-5.5) mmol/L Chloride 108 (96-109) mmol/L Carbon Dioxide 20.9 L (21.6-31.8) mmol/L BUN 9.1 (9.0-27.0) mg/dL Creatinine 0.6 (0.6-1.5) mg/dL Glucose 109 (70-110) mg/dL Calcium 8.2 L (8.7-10.3) mg/dL Current Medications Generic Name Dose Route Start Last Admin Trade Name Freq PRN Reason Stop Dose Admin Acetaminophen 650 mg 11/13/22 12:37 Acetaminophen Tab 325 Mg Tab PO Q6HR PRN Mild Pain or Fever > 100.5 Hydrocodone Bitart/Acetaminophen 1 each 11/13/22 12:37 Hydrocodone/Apap 5-325mg 1 Each Tab PO Q4HR PRN Moderate Pain (Scale 4 to 6) Albuterol Sulfate 2.5 mg 11/14/22 16:35 Albuterol Nebulized 2.5 Mg/3 Ml INHALATION RT-QID PRN Shortness Of Breath Apixaban 2.5 mg 11/15/22 11:00 11/15/22 11:39 Apixaban 2.5 Mg Tablet PO 2.5 mg BID PASQUALE Administration Protocol Atorvastatin Calcium 10 mg 11/15/22 09:00 11/15/22 08:27 Atorvastatin 10 Mg Tab PO 10 mg Q48H PASQUALE Administration Sodium Chloride 1,000 mls @ 75 mls/hr 11/14/22 16:45 11/15/22 06:21 Saline 0.9% IV 75 mls/hr .[id number] PASQUALE Administration Levofloxacin 750 mg 11/14/22 09:00 11/15/22 08:27 Levofloxacin 750 Mg Tab PO 11/17/22 09:01 750 mg DAILY PASQUALE Administration Protocol Lisinopril 10 mg 11/15/22 21:00 Lisinopril 10 Mg Tab PO HS PASQUALE Metoprolol Tartrate 25 mg 11/15/22 11:15 11/15/22 11:39 Metoprolol Tartrate 25 Mg Tab PO 25 mg BID PASQUALE Administration Miscellaneous Information 1 each 11/13/22 11:54 Pneumonia Protocol Utilized 1 Each Misc PO ONCE PRN Per Protocol Naloxone HCl 0.2 mg 11/13/22 12:37 Naloxone 0.4 Mg/Ml 1 Ml Vial IV Q2M PRN Opioid Reversal Ondansetron HCl 4 mg 11/13/22 12:37 Ondansetron 4 Mg/2 Ml Vial IVP Q8HR PRN Nausea And Vomiting Intake and Output 11/14/22 11/15/22 11/15/22 22:59 06:59 14:59 Intake Total 590 Balance 590 Intake: Oral 590 Other: Voiding Method Toilet Toilet # Voids 1 3 11/15/22 06:00 11/15/22 06:00
--- NOTE | 2022-11-15 14:23 | CA ---
Transthoracic Echo Report Name: Aria Tejeda Age: 86 Gender: F : 1935 Exam Date: 11/15/2022 12:20 Exam Location: [facility] Ht (in): 60 Wt (lb): 130 Ordering Physician: Rin Ferguson Attending/Referring Phys: [id number], Marty Yarn Worker Adrien Nicole Procedure CPT: Indications: LV function, new onset afib Cardiac Hx: Technical Quality: Fair Contrast 1: Total Dose (mL): Contrast 2: Total Dose (mL): MEASUREMENTS (Male / Female) Normal Values 2D ECHO LVOT Diameter 2.0 cm Aortic Root Diameter 2.8 cm LA Systolic Diameter LX 3.1 cm 3.0 - 4.0 / 2.7 - 3.8 cm LV Diastolic Volume MOD BP 30.9 cm??? 67 - 155 / 56 - 104 cm??? LV Systolic Volume MOD BP 8.3 cm??? 22 - 58 / 19 - 49 cm??? LV Ejection Fraction MOD BP 73.1 % >= 55 % LV Cardiac Index MOD BP 1276.2 cm???/min???m??? LV Diastolic Volume MOD 4C 31.0 cm??? LV Systolic Volume MOD 4C 8.2 cm??? LV Ejection Fraction MOD 4C 73.5 % LV Cardiac Index MOD 4C 1287.7 cm???/min???m??? LV Diastolic Length 4C 6.2 cm LV Systolic Length 4C 5.2 cm LV Diastolic Volume MOD 2C 30.4 cm??? LV Systolic Volume MOD 2C 8.5 cm??? LV Ejection Fraction MOD 2C 72.2 % LV Cardiac Index MOD 2C 1239.7 cm???/min???m??? LV Diastolic Length 2C 6.1 cm LV Systolic Length 2C 5.3 cm LA Volume 25.4 cm??? 18 - 58 / 22 - 52 cm??? Ascending Aorta Diameter 2.4 cm DOPPLER AV Peak Velocity 172.9 cm/s AV Peak Gradient 12.0 mmHg LVOT Peak Velocity 88.0 cm/s LVOT Peak Gradient 3.1 mmHg AV Area Cont Eq pk 1.6 cm??? MV Peak Velocity 121.7 cm/s MV Peak Gradient 5.9 mmHg MV Mean Velocity 55.2 cm/s MV Mean Gradient 1.6 mmHg MV Velocity Time Integral 30.4 cm MR Peak Velocity 245.9 cm/s MR Peak Gradient 24.2 mmHg Mitral E Point Velocity 93.4 cm/s Mitral A Point Velocity 126.8 cm/s Mitral E to A Ratio 0.7 MV Deceleration Time 176.3 ms MV E' Velocity 6.2 cm/s Mitral E to MV E' Ratio 15.2 TR Peak Velocity 220.6 cm/s TR Peak Gradient 19.5 mmHg Right Ventricular Systolic Press 24.5 mmHg PV Peak Velocity 138.9 cm/s PV Peak Gradient 7.7 mmHg FINDINGS Left Ventricle Normal LV size and wall thickness. Left ventricular ejection fraction is estimated at 50-55 %. No obvious regional wall motion abnormality. Grade 1 diastolic dysfunction Right Ventricle Normal right ventricular size. RVSP= 27mmhg. Right Atrium Normal right atrial size. Left Atrium Normal left atrial size. Mitral Valve Structurally normal mitral valve. Trace MR. Aortic Valve Mild to moderate AV calcification. No significant regurgitation stenosis Tricuspid Valve Tricuspid valve not well visualized. Mild TR. Pulmonic Valve Pulmonic valve not well visualized. Mild PI. Pericardium No pericardial effusion Aorta Normal size aortic root and proximal ascending aorta. CONCLUSIONS Normal LV size and wall thickness. Left ventricular ejection fraction is estimated at 50-55 %. No obvious regional wall motion abnormality. Grade 1 diastolic dysfunction. No significant valvular disease Normal chamber size No prior echo to compare with Previewed by: Dr Eddie Hylton (Electronically Signed) Final Date: 15 November 2022 14:22
--- NOTE | 2022-11-15 16:06 | P.PN ---
Subjective Progress Note Date: 11/15/22 Patient is a 86-year-old female with a known history of hypertension, hyperlipidemia, history of heart murmur and is on follow-up with Dr. Taylor as an outpatient was brought to the hospital as she was found on on the floor. Last night she had up on the floor and unsure how she got there. She has been on the floor all night and urinated on herself. Family came in to check on her today and found her on the floor. Otherwise patient denies any complaints of pain or any injuries. Patient states that she is felt too weak to get herself up. Patient states that she went to walk-in clinic several days ago for urinary urgency and was diagnosed with urinary tract infection. Patient was given Macrobid course. She has been taking the medications and is left for 2 days to complete. As per family she slept all day yesterday and felt very weak. Laboratory data showed WBC 18.6 hemoglobin 14.7 platelets 250 Sodium 136 potassium 3.8 chloride 102 bicarb is 22 BUN 12 and creatinine 0.65 and blood sugar is 154. Lactic acid 2.2 CPK level is 2115 and troponin x1 negative CRP 6.8 and procalcitonin level is 0.24. Urinalysis showed cloudy with moderate blood and 1 RBCs and WBCs 4. Chest x-ray showed COPD. Subsegmental changes in the left lung base favor atelectasis or pneumonia. Correlate clinically. EKG showed sinus tachycardia. 11/14/2022 Patient is seen and evaluated in follow-up this morning currently undergoing repeat chest x-ray which is currently pending. Patient maintained on antibio tics in the form of Levaquin and will continue. Patient is currently afebrile with no reports of chest pain or shortness of breath. Patient denies any burning or frequency with urination. IV fluids continued and we'll decrease the rate slightly and follow-up with repeat labs. CK remains elevated. Patient with weakness will have physical therapy evaluate the patient. Patient denies nausea or vomiting and tolerating diet. 11/15/2022 Patient seen and evaluated in follow-up today sitting up at the side of the bed currently just had 2-D echo being done which is currently pending. Cardiology following as patient had a run of V. tach on limited monitoring. Patient denies any chest pain, palpitations, dizziness, or lightheadedness. Patient is maintained on gentle IV hydration with some improvement in CK and trending down. Patient was seen and evaluated by physical therapy doing well and will be going home once discharged. Patient maintained on antibiotics as well and will continue. Patient remains afebrile. Will follow-up with repeat labs in a.m. and discuss possible discharge planning within the next 24 hours. All medications reviewed and resumed. Review of systems: Constitutional: No reports of fatigue, fever, or chills Cardiovascular: No reports of chest pain or palpitations Respiratory: No reports of shortness of breath or cough GI: No reports of nausea, vomiting, or diarrhea : No reports of dysuria or retention Neurovascular: reports of feeling generalized weakness Although improved All medications have been reviewed Gen: This is a 86-year-old female who is awake, alert and oriented 3, well- developed, well-nourished HEENT: Head is atraumatic, normocephalic. Pupils equal, round. Sclerae is anicteric. NECK: Supple. No JVD. No lymphadenopathy. No thyromegaly. LUNGS: Clear to auscultation. No wheezes or rhonchi. No intercostal retractions. HEART: Regular rate and rhythm. No murmur. ABDOMEN: Soft. Bowel sounds are present. No masses. No tenderness. EXTREMITIES: No pedal edema. No calf tenderness. NEUROLOGICAL: Patient is awake, alert and oriented x3. Cranial nerves 2 through 12 are grossly intact. Assessment: Left lower lobe pneumonia Sepsis secondary to above Recently treated urinary tract infection Run of V. tach on the monitor, most likely new onset paroxysmal atrial fibrillation Acute rhabdomyolysis CPK 2115 on admission, traumatic rhabdomyolysis due to prolonged immobility from falling and laying on the floor overnight Generalized weakness and was on the floor overnight until family found her this morning. Lactic acidosis Hypertension Hyperlipidemia DVT prophylaxis with heparin subcu GI prophylaxis Full code Plan: Patient will be continued on IV hydration with normal saline. Will cut down the dose slightly and repeat CK in the a.m. On telemetry there was a run of V. tach and cardiology was consulted recommending 2-D echo. Home meds reviewed and resumed and recommending discontinuing atenolol and switching to metoprolol and will await 2-D echo report. Patient also being started on anticoagulation Currently on antibiotics levofloxacin. Patient is allergic to cefuroxime and pe nicillins. Follow-up chest x-ray shows stable with COPD and will add as needed breathing treatments. Patient denies worsening shortness of breath Patient reports to feeling well and asking if she can go home. Will monitor overnight with follow-up labs and discuss possible discharge in the next 24 hours. The impression and plan of care has been dictated by Nichole Luna Nurse Pr actitioner as directed. Dr. Lindy MD I have performed a history and examination and MDM of this patient, discussed the same with the dictator, and agree with the dictator's assessment and plan as written ,documented as a scribe. Based on total visit time, I have performed more than 50% of the visit. Objective - Vital Signs Vital signs: Vital Signs Temp 98.0 F 11/15/22 13:32 Pulse 95 11/15/22 13:32 Resp 17 11/15/22 13:32 BP 127/71 11/15/22 13:32 Pulse Ox 95 11/15/22 13:32 FiO2 Intake & Output 11/14/22 11/15/22 11/15/22 18:59 06:59 18:59 Intake Total 590 Balance 590 Intake: Oral 590 Other: Voiding Method Toilet Toilet Toilet # Voids 1 3 # Bowel Movements 1 - Labs CBC & Chem 7: 11/15/22 06:00 11/15/22 06:00 Labs: Abnormal Lab Results - Last 24 Hours (Table) 11/14/22 11/15/22 11/15/22 Range/Units 05:33 06:00 06:00 WBC 10.45 H (4.50-10.00) X 10*3/uL Neutrophils # (Manual) 10.44 H (1.80-7.70) X 10*3/uL Monocytes # 1.24 H (0.20-1.00) X 10*3/uL Carbon Dioxide 20.9 L (21.6-31.8) mmol/L Anion Gap 14.10 H (4.00-12.00) mmol/L Calcium 8.2 L (8.7-10.3) mg/dL Creatine Kinase 1040 H* (26-186) U/L Microbiology - Last 24 Hours (Table) 11/13/22 14:15 Blood Culture - Preliminary Blood 11/13/22 11:54 Blood Culture - Preliminary Blood
[2022-11-15] MEDS ORDERED: lisinopriL 10 MG TAB PO SCH (21:00)
[2022-11-16 08:59] LABS: Basophils # (A) 0.03 X 10*3/uL (0.00-0.10); Basophils % (A) 0.3 %; Eosinophils # (A) 0.39 X 10*3/uL (0.04-0.35); HCT 36.5 % (37.2-46.3); Lymphocytes # (A) 2.52 X 10*3/uL (0.90-5.00); Lymphocytes % (A) 25.6 %; MCH 30.4 pg (27.0-32.0); MCHC 32.9 d/dL (32.0-37.0); MCV 92.4 FL (80.0-97.0); Mean Platelet Volume 11.7 FL (9.5-12.2); Monocytes # (A) 1.06 X 10*3/uL (0.20-1.00); Monocytes % (A) 10.8 %; NRBC Per 100 WBC 0 X 10*3/uL (0.00-0.01); Neutrophils # (A) 5.77 X 10*3/uL (1.80-7.70); Neutrophils % (A) 58.7 %; Platelet Count 259 X 10*3/uL (140-440); RBC 3.95 X 10*6/uL (4.10-5.20); RDW 13.4 % (11.5-14.5); WBC 9.83 X 10*3/uL (4.50-10.00)
[2022-11-16 09:06] LABS: BUN/Creat Ratio 13.83 Ratio (12.00-20.00); Blood Urea Nitrogen 8.3 mg/dL (9.0-27.0); Calcium 8.1 mg/dL (8.7-10.3); Carbon Dioxide 21.9 mmol/L (21.6-31.8); Chloride 112 mmol/L (96-109); Creatine Kinase 434 U/L (26-186); Glucose 112 mg/dL (70-110); Potassium 3.5 mmol/L (3.5-5.5); Sodium 143 mmol/L (135-145)
[2022-11-16] MEDS: LEVOFLOXACIN 750 MG TAB PO SCH (09:26)
[2022-11-16] MEDS: APIXABAN 2.5 MG TABLET PO SCH (09:27)
[2022-11-16] MEDS: METOPROLOL TARTRATE 25 MG TAB PO SCH (09:27)
[2022-11-16] MEDS: SODIUM CHLORIDE 0.9% 1,000 ML IV SCH (09:37)
--- NOTE | 2022-11-16 10:55 | P.PN ---
Subjective HISTORY OF PRESENT ILLNESS: This is a 86-year-old female with a past medical history significant for hypertension and hyperlipidemia. Patient follows in the office with Dr. Taylor. We have been asked to see the patient in consultation for ventricular tachycardia. Patient examined at the bedside. Patient presented to the hospital after she was found on her floor at home. The patient states that she woke up and was on the floor. She does not remember falling. She states she was unable to get up and laid on the floor for several hours. The patient was found to have rhabdomyolysis and also left lower lobe pneumonia. The patient currently denies chest pain or pressure. She denies shortness of breath. Telemetry r eviewed and appears to show episodes of atrial fibrillation with aberrancy rather than ventricular tachycardia. Patient denies a history of atrial fibrillation. She denies having any palpitations. She denies any alcohol use. She denies any excessive caffeine use and states she does not drink coffee. * EKG reveals sinus tachycardia. Telemetry reviewed with episodes of atrial fibrillation with aberrancy * Chest xray COPD. Subsegmental changes at the left lung base favored atelectasis or pneumonia. * Laboratory data: W BC 10.45. Hemoglobin 13.0. Platelet count 231. Sodium 143. Potassium 3.7. BUN 9.1. Creatinine 0.6. Creatinine kinase 1040. * Current home cardiac medications include simvastatin 10 mg every 48 hours, enalapril 5 mg at night, atenolol 25 mg at night 11/16/2022 Patient examined this morning. Patient is sitting up in the chair. Patient denies chest pain or pressure. She denies shortness of breath. She is maintaining sinus mechanism. Echocardiogram completed revealing ejection fraction 50-55% with no obvious regional wall motion abnormalities, grade 1 diastolic dysfunction, and no significant valvular disease. PHYSICAL EXAM: VITAL SIGNS: Reviewed. GENERAL: Well-developed in no acute distress. HEENT: Head is normocephalic. Pupils are equal, round. Sclerae anicteric. Mucous membranes of the mouth are moist. Neck supple. No JVD or thyromegaly LUNGS: Respirations even and unlabored. Lungs essentially clear to auscultation bilaterally. HEART: Regular rate and rhythm. S1 and S2 heard. Positive systolic murmur ABDOMEN: Soft. Nondistended. Nontender. EXTREMITIES: Normal range of motion. No clubbing or cyanosis. Peripheral pulses intact. No lower extremity edema NEUROLOGIC: Awake and alert. Oriented x 3. 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 Taylor Nurse practitioner note has been reviewed by physician. Signing provider agrees with the documented findings, assessment, and plan of care. Dr. Hylton's Addendum New onset atrial fibrillation. Telemetry strips showing atrial fibrillation is seen in the electronic chart I have personally seen and examined the patient. I have personally performed all the components of medical care documented above including detailed hisotry, review of system, physican exam, MDM and formulating the assessment and plan. I have personally reviewed the relevant labs, imaging and other diagnostics. I have discussed this in detail with my EMPLOYEE RELATIONS MANAGER who has helped me with this documentation. I have carefully reviewed this document before finalizing. Total time spent reviewing medical chart, examining patient, counselling patient and documentation 30 mins Thank you for letting cardiology team participating in this patient's care. Dr. Eddie Hylton MD Cardiovascular Disease Objective - Vital Signs Vital signs: Vital Signs Temp 98.8 F 11/16/22 07:18 Pulse 97 11/16/22 07:18 Resp 18 11/16/22 07:18 BP 146/71 11/16/22 07:18 Pulse Ox 96 11/16/22 07:48 FiO2 21 11/16/22 07:48 Intake & Output 11/15/22 11/16/22 11/16/22 18:59 06:59 18:59 Intake Total 900 590 Balance 900 590 Intake: Intake, IV Titration 900 Amount Sodium Chloride 0.9% 1, 900 000 ml @ 75 mls/hr IV . [id number] PASQUALE Rx#:[id number] Oral 590 Other: Voiding Method Toilet Toilet Toilet # Voids 4 - Labs CBC & Chem 7: 11/16/22 05:28 11/16/22 05:28 Labs: Abnormal Lab Results - Last 24 Hours (Table) 11/14/22 11/16/22 11/16/22 Range/Units 05:33 05:28 05:28 RBC 3.95 L (4.10-5.20) X 10*6/uL Hct 36.5 L (37.2-46.3) % Neutrophils # (Manual) 10.44 H (1.80-7.70) X 10*3/uL Monocytes # 1.06 H (0.20-1.00) X 10*3/uL Eosinophils # 0.39 H (0.04-0.35) X 10*3/uL Chloride 112 H (96-109) mmol/L BUN 8.3 L (9.0-27.0) mg/dL Glucose 112 H (70-110) mg/dL Calcium 8.1 L (8.7-10.3) mg/dL Creatine Kinase 434 H (26-186) U/L Microbiology - Last 24 Hours (Table) 11/13/22 14:15 Blood Culture - Preliminary Blood 11/13/22 11:54 Blood Culture - Preliminary Blood
[2022-11-16 12:30] VITALS: BP 152/70; PULSE 90; RESP 18; TEMP 97.4
--- NOTE | 2022-11-17 13:17 | P.DS ---
Providers Date of admission: 11/13/22 12:41 Expected date of discharge: 11/16/22 Attending physician: Comfort Israel Primary care physician: Juanjose Castaneda [facility] Course: Final diagnosis Left lower lobe pneumonia, present on admission Sepsis secondary to above Recently treated urinary tract infection Run of V. tach on the monitor, most likely new onset paroxysmal atrial fibrillation Acute rhabdomyolysis CPK 2115 on admission, traumatic rhabdomyolysis due to prolonged immobility from falling and laying on the floor overnight Generalized weakness and was on the floor overnight until family found her this morning. Lactic acidosis Hypertension Hyperlipidemia DVT prophylaxis with heparin subcu GI prophylaxis Full code Discharge disposition Patient is being discharged in a stable condition with guarded prognosis to home. Patient will follow-up with Dr. Castaneda in the outpatient setting upon discharge. Patient is to continue with medications as prescribed below and close outpatient follow-up with cardiology as scheduled. Total time taken is greater than 35 minutes. Hospital course This is a 86-year-old female who was recently admitted with fall and elevated CK with acute rhabdomyolysis being closely monitored. Patient also with concerns of sepsis, present on admission secondary to left lower lobe pneumonia. Patient maintained on antibiotics and we'll transition to a short course to complete the course. Patient was seen and evaluated by cardiology for new onset atrial fibrillation being started on anticoagulation along with close outpatient follow-up. Please refer to cardiology notes for further HPI. Patient's CK levels trending down and would recommend outpatient follow-up with labs in the next few days. Patient was seen and evaluated by physical therapy and will be going home. Patient is extremely anxious to go home and feels significantly better. Currently no reports of chest pain, shortness of breath, or palpitations. Patient is afebrile. No reports of nausea or vomiting and patient is tolerating diet. Patient will be discharged home today. Physical exam: Gen: This is a 86-year-old female who is awake, alert and oriented 3, well- developed, well-nourished HEENT: Head is atraumatic, normocephalic. Pupils equal, round. Sclerae is anicteric. NECK: Supple. No JVD. No lymphadenopathy. No thyromegaly. LUNGS: Clear to auscultation. No wheezes or rhonchi. No intercostal retractions. HEART: S1, S2 are muffled ABDOMEN: Soft. Bowel sounds are present. No masses. No tenderness. EXTREMITIES: No pedal edema. No calf tenderness. NEUROLOGICAL: Patient is awake, alert and oriented x3. Cranial nerves 2 through 12 are grossly intact. Please refer to medication reconciliation sheet for a list of medications. The impression and plan of care has been dictated by Nichole uLna, Nurse Practitioner as directed. Dr. Lindy MD I have performed a history and examination and MDM of this patient, discussed the same with the dictator, and agree with the dictator's assessment and plan as written ,documented as a scribe. Based on total visit time, I have performed more than 50% of the visit. Patient Condition at Discharge: Stable Plan - Discharge Summary Discharge Rx Participant: No New Discharge Prescriptions: New Metoprolol Tartrate [Lopressor] 25 mg PO BID #60 tab Apixaban [Eliquis] 2.5 mg PO BID #60 tab Levofloxacin [Levaquin] 750 mg PO DAILY 3 Days #3 tab Acetaminophen Tab [Tylenol] 650 mg PO Q6HR PRN tab PRN Reason: Mild Pain Or Fever > 100.5 Continue Enalapril [Vasotec] 5 mg PO HS Atenolol [Tenormin] 25 mg PO HS Simvastatin [Zocor] 10 mg PO Q48H Discharge Medication List Atenolol [Tenormin] 25 mg PO HS 11/19/13 [History] Enalapril [Vasotec] 5 mg PO HS 11/19/13 [History] Simvastatin [Zocor] 10 mg PO Q48H 11/13/22 [History] Apixaban [Eliquis] 2.5 mg PO BID #60 tab 11/15/22 [Rx] Acetaminophen Tab [Tylenol] 650 mg PO Q6HR PRN tab 11/16/22 [Rx] Levofloxacin [Levaquin] 750 mg PO DAILY 3 Days #3 tab 11/16/22 [Rx] Metoprolol Tartrate [Lopressor] 25 mg PO BID #60 tab 11/16/22 [Rx] Follow up Appointment(s)/Referral(s): Treva Taylor MD [STAFF PHYSICIAN] - 1 Week (please call the office and make follow up appointment.) Juanjose Castaneda MD [Primary Care Provider] - 1-2 days (Please call the office and make follow up appointment.) Activity/Diet/Wound Care/Special Instructions: Activity Limited until follow-up Follow-up with primary care provider and discharge Continue taking medications as prescribed Follow-up with cardiology outpatient Discharge Disposition: HOME SELF-CARE
== END 2022-11-16 13:25 | disposition home or self-care (01) | DRG 871 ==
LOC: EC 09:52 → 5NMEDONC 12:41
PROVIDERS: ADMIT Internal Medicine; ATTEND Internal Medicine
DX: A41.9 Sepsis, unspecified organism (principal); J18.9 Pneumonia, unspecified organism; E87.20 Acidosis, unspecified; J44.0 Chronic obstructive pulmonary disease with (acute) lower respiratory infection; I48.0 Paroxysmal atrial fibrillation; T79.6XXA Traumatic ischemia of muscle, initial encounter; Z20.822 Contact with and (suspected) exposure to COVID-19; E78.5 Hyperlipidemia, unspecified; I10 Essential (primary) hypertension; I45.9 Conduction disorder, unspecified; R39.15 Urgency of urination; Z79.899 Other long term (current) drug therapy; Z87.440 Personal history of urinary (tract) infections; Z88.0 Allergy status to penicillin; Z88.1 Allergy status to other antibiotic agents; W19.XXXA Unspecified fall, initial encounter
CPT/HCPCS: 36415; 71046; 80048; 80053; 81001; 82550; 83605; 83735; 84145; 84443; 84484; 85025; 85610; 85730; 86140; 87040; 87449; 87636; 93005; 93270; 93306; 94760; 96361; 96365; 96366; 99285